=== PATIENT | female | born 1945 | race Native Hawaiian/Other Pacific Islander ===

== ENCOUNTER 2016-10-16 12:07 | Outpatient (CLI) | payer OTHER | END 2016-10-16 20:01 | disposition home or self-care (01) | LOC: RAD 12:07 | DX: M25.511 Pain in right shoulder (principal) ==

== ENCOUNTER 2018-03-11 10:54 | Outpatient (CLI) | payer OTHER, MEDICARE | END 2018-03-11 23:30 | disposition home or self-care (01) | LOC: RAD 10:54 | DX: M54.5 Low back pain (principal) ==